=== PATIENT | female | born 1980 | race Caucasian/White ===

== ENCOUNTER 2024-02-20 05:51 | Day surgery (SDC) | payer MEDICAID ==
[2024-02-20] MEDS ORDERED: ALPRAZolam 0.25 MG TAB PO PRN (05:54)
[2024-02-20] MEDS ORDERED: ALPRAZolam 0.5 MG TAB PO PRN (05:54)
[2024-02-20] MEDS ORDERED: NITROGLYCERIN SL TABS 0.4 MG TAB SUBLINGUAL PRN (05:54)
[2024-02-20 06:27] VITALS: RESP 16; TEMP 97.9
[2024-02-20 06:38] LABS: Basophils # (A) 0.1 k/uL (0-0.2); Basophils % (A) 1 %; Eosinophils # (A) 0.1 k/uL (0-0.7); Eosinophils % (A) 2 %; HCT 43.8 % (39.0-53.0); HGB 14.3 gm/dL (13.0-17.5); Lymphocytes # (A) 1.4 k/uL (1.0-4.8); Lymphocytes % (A) 26 %; MCH 29.6 pg (25.0-35.0); MCHC 32.8 g/dL (31.0-37.0); MCV 90.4 fL (80.0-100.0); Mean Platelet Volume 8.4; Monocytes # (A) 0.2 k/uL (0-1.0); Monocytes % (A) 4 %; Neutrophils # (A) 3.5 k/uL (1.3-7.7); Neutrophils % (A) 64 %; Platelet Count 253 k/uL (150-450); RBC 4.84 m/uL (4.30-5.90); RDW 12.6 % (11.5-15.5); WBC 5.5 k/uL (3.8-10.6)
[2024-02-20] MEDS: EMPTY BAG 1 BAG with SODIUM CHLORIDE 0.9% 1,000 ML IV ONE (06:43)
[2024-02-20] MEDS: SODIUM CHLORIDE 0.9% 1,000 ML in EMPTY BAG 1 BAG IV SCH (06:45)
[2024-02-20 06:48] LABS: African American GFR (CKD) >90 (>60 ml/min/1.73 sqM); Anion Gap 4 mmol/L; Blood Urea Nitrogen 12 mg/dL (9-20); Calcium 9.2 mg/dL (8.4-10.2); Carbon Dioxide 23 mmol/L (22-30); Chloride 111 mmol/L (98-107); Glucose 99 mg/dL (74-99); Non-African American GFR(CKD) >90 (>60 ml/min/1.73 sqM); Sodium 138 mmol/L (137-145)
[2024-02-20 06:52] LABS: Potassium 5.3 mmol/L (3.5-5.1)
[2024-02-20] MEDS ORDERED: HEPARIN SODIUM,PORCINE 10,000 UNIT in SODIUM CHLORIDE 0.9% 1,000 ML IRRIGATION PRN (07:00)
[2024-02-20] MEDS ORDERED: ASPIRIN 325 MG TAB PO ONE (07:00)
[2024-02-20] MEDS ORDERED: HEPARIN SODIUM,PORCINE (1 ML) 2,500 UNIT in SODIUM CHLORIDE 0.9% 250 ML IRRIGATION PRN (07:00)
[2024-02-20] MEDS ORDERED: ATORVASTATIN 80 MG TAB PO ONE (07:00)
[2024-02-20] MEDS: IV FLUID CONTINUATION 1,000 ML IV ONE (07:35)
[2024-02-20] MEDS: MIDAZOLAM 2 MG/2 ML VIAL IVP ONE (07:45)
[2024-02-20] MEDS: LIDOCAINE 1% INJ 10MG/ML (20 ML MDV) SQ ONE (07:56)
[2024-02-20] MEDS: HEPARIN SODIUM 1,000 UN/ML (10ML VL) IVP ONE (07:58)
[2024-02-20] MEDS: VERAPAMIL SYRINGE (5 MG/10 ML) INTRAARTER ONE (07:59)
[2024-02-20] MEDS: IOPAMIDOL-370 100ML BTL INJ ONE (08:08)
[2024-02-20] MEDS ORDERED: RX INFO: IV CONTRAST WAS GIVEN 1 EACH MISC MISCELLANE PRN (08:15)
[2024-02-20] MEDS ORDERED: SODIUM CHLORIDE 0.9% 1,000 ML IV SCH (08:15)
--- NOTE | 2024-02-20 08:18 | P.PCN ---
Date of Procedure: 02/20/24 Operative Findings: CARDIAC CATHETERIZATION PERFORMING PHYSICIAN: Kayden Fraser MD, RPVI PROCEDURE PERFORMED: 1. Selective right and left coronary angiogram 2. Left heart catheterization 3. Ultrasound-guided access of the right radial artery INDICATION: Chest discomfort concerning for angina COMPLICATION: None APPROACH: Right radial artery LEVEL OF SEDATION: Moderate with a sedation length of 18 minutes PROCEDURE DESCRIPTION: After obtaining an informed consent, the patient was brought to cardiac labor and employment paralegal. Local anesthesia was performed using lidocaine subcutaneously. The right radial artery was cannulated using Seldinger technique, the guidewire passed easily, following that we advanced a 5-[place] sheath dilator assembly, the wire and dilator were removed and sheath was flushed. Following that, 2 mg of verapamil along with 5000 unit heparin were given. Selective right and left coronary angiogram using a 6-[place] JR4 and JL 3.5 catheters. Following that we did left heart catheterization using 6-[place] pigtail catheter. The procedure was completed there was no complication. SELECTIVE CORONARY ANGIOGRAM: The right coronary artery: Large-caliber vessel and a dominant vessel and appears to be angiographically normal Left main: Appears to be angiographically normal The left circumflex: Large-caliber vessel nondominant vessel and angiographically normal and gives rise into a large OM which appears to be normal The left anterior descending artery: Large caliber vessel with mild disease in the proximal portion with no evidence of high-grade stenosis HEMODYNAMICS: The LVEDP was 15 mmHg with no significant gradient across aortic valve CONCLUSION: 1. Mild CAD 2. Normal left-sided filling pressure POSTPROCEDURE MANAGEMENT: Medical treatment
[2024-02-20 12:39] VITALS: BP 136/75; PULSE 52
== END 2024-02-20 12:55 | disposition home or self-care (01) ==
LOC: CATHCVL 05:51 → EDSEX 05:51 → CATHCVL 12:55
PROVIDERS: ATTEND Internal Medicine Interventional Cardiology
DX: I25.10 Atherosclerotic heart disease of native coronary artery without angina pectoris (principal); I10 Essential (primary) hypertension; E78.5 Hyperlipidemia, unspecified; Z87.891 Personal history of nicotine dependence; Z88.0 Allergy status to penicillin; Z79.82 Long term (current) use of aspirin; Z79.899 Other long term (current) drug therapy
CPT/HCPCS: 93458; 80048; 85025; C1769; C1894; J2250; J2003; J1644; Q9967